=== PATIENT | male | born 1985 | race African-American/Black ===

== ENCOUNTER 2019-12-11 11:19 | Emergency (ER) | payer MEDICAID ==
[~2019-12-11] VITALS: Ht 185.4 cm; Wt 81.6 kg
--- NOTE | 2019-12-11 11:45 | NUR ---
Patient discharged to home in stable condition. Written and verbal after care instructions given. Patient verbalizes understanding of instructions. Stressed follow up or return to ER for worsening s/s.
== END 2019-12-11 11:52 | disposition home or self-care (01) ==
LOC: ER 11:19
DX: K64.9 Unspecified hemorrhoids (principal); J45.909 Unspecified asthma, uncomplicated
CPT/HCPCS: A4663

== ENCOUNTER 2020-04-02 13:32 | Emergency (ER) | payer MEDICAID ==
[~2020-04-02] VITALS: Ht 185.4 cm; Wt 83.9 kg
[2020-04-02] MEDS ORDERED: EMTR1TAB6 PO (13:49)
[2020-04-02] MEDS ORDERED: IBUP-1953 PO (13:49)
--- NOTE | 2020-04-02 14:19 | NUR ---
Dr Pineda at the bedside for MSE.
--- NOTE | 2020-04-02 14:51 | NUR ---
XRAY DONE AT BEDSIDE PER MD ORDER.
[2020-04-02 15:22] VITALS: BP 123/75
== END 2020-04-02 15:23 | disposition home or self-care (01) ==
LOC: ER 13:32
DX: M77.52 Other enthesopathy of left foot and ankle (principal); J45.909 Unspecified asthma, uncomplicated; Z79.899 Other long term (current) drug therapy; Z87.828 Personal history of other (healed) physical injury and trauma
CPT/HCPCS: 73610; 73630; A4663

== ENCOUNTER 2020-07-11 10:54 | Emergency (ER) | payer MEDICAID ==
[~2020-07-11] VITALS: Ht 185.4 cm; Wt 83.9 kg
[~2020-07-11 10:54] MED LIST: EMTR1TAB6 PO; IBUP-1953 PO
--- NOTE | 2020-07-11 11:22 | NUR ---
PATIENT WAITING TO BE SEEN. PATIENT IN TO COMPLAIN FOR PENILE DISCHARGE. STATES HE OFTEN GETS THAT DURING THE YEAR.
--- NOTE | 2020-07-11 11:30 | NUR ---
PATIENT SEEN BY DR CHRIS
--- NOTE | 2020-07-11 11:40 | NUR ---
URINE SENT TO LAB.
[2020-07-11 11:51] LABS: *BILIRUBIN,URIN NEGATIVE (NEGATIVE); *BLOOD, URINE NEGATIVE (NEGATIVE); *COLOR,URINE YELLOW (YELLOW); *KETONES,URINE NEGATIVE (NEGATIVE); *UROBILINOGEN,URINE 0.2 E.U./dl (NORMAL); LEUKOCYTE ESTERASE ,URINE NEGATIVE (NEGATIVE); NITRITE, URINE NEGATIVE (NEGATIVE); PH,URINE 6.5 (5.0-8.0); UGLUCOSE NEGATIVE (NEGATIVE)
[2020-07-11] MEDS ORDERED: CEPH500C2 PO (12:15)
--- NOTE | 2020-07-11 12:15 | NUR ---
PATIENT DISCHARGE PAPERWORK GIVEN, SIGNED, AND PRESCRIPTIONS ALSO GIVEN TO PATIENT.
[2020-07-11 15:15] LABS: *CLARITY,URINE CLEAR (CLEAR); RBC,URINE NONE SEEN /HPF (0-3)
[2020-07-11 15:16] LABS: BACTERIA,URINE NONE SEEN /HPF (NONE SEEN); SQUAMOUS EPITHELIAL CELL,UR NONE SEEN /HPF (NONE SEEN); WBC,URINE NONE SEEN /HPF (0-3)
[2020-07-13 08:06] LABS: *GC NAA Negative (Negative); *TRIC.VAG. NAA Negative (Negative)
== END 2020-07-11 12:23 | disposition home or self-care (01) ==
LOC: ER 10:54
DX: N48.1 Balanitis (principal); J45.909 Unspecified asthma, uncomplicated
CPT/HCPCS: 87491; A4663

== ENCOUNTER 2021-01-25 14:10 | Emergency (ER) | payer MEDICAID, OTHER ==
[~2021-01-25] VITALS: Ht 185.4 cm; Wt 83.9 kg
[~2021-01-25 14:10] MED LIST changes: +CEPH500C2 PO
[2021-01-25] MEDS ORDERED: PRED20TA PO (14:48)
[2021-01-25 14:54] VITALS: BP 142/84
--- NOTE | 2021-01-25 14:55 | NUR ---
PT WAS EVALUATED BY DR SERVIN. PT WAS D/C'd TO HOME. D/C INSTRUCTIONS GIVEN TO THE PT BY DR SERVIN.
== END 2021-01-25 14:56 | disposition home or self-care (01) ==
LOC: ER 14:10
DX: J06.9 Acute upper respiratory infection, unspecified (principal); Z20.822 Contact with and (suspected) exposure to COVID-19; J45.909 Unspecified asthma, uncomplicated
CPT/HCPCS: 87400; A4663

== ENCOUNTER 2021-02-03 14:57 | Emergency (ER) | payer OTHER ==
[~2021-02-03] VITALS: Ht 185.4 cm; Wt 83.9 kg
[~2021-02-03 14:57] MED LIST changes: +PRED20TA PO
[2021-02-03] MEDS ORDERED: AMOX-430 PO (15:42)
[2021-02-03] MEDS ORDERED: IBUP-1953 PO (15:52)
[2021-02-03 15:58] VITALS: BP 130/72
== END 2021-02-03 15:59 | disposition home or self-care (01) ==
LOC: ER 15:00
DX: S60.222A Contusion of left hand, initial encounter (principal); W54.0XXA Bitten by dog, initial encounter; Y92.89 Other specified places as the place of occurrence of the external cause; J45.909 Unspecified asthma, uncomplicated
CPT/HCPCS: A4663

== ENCOUNTER 2021-05-24 13:11 | Emergency (ER) | payer OTHER ==
[~2021-05-24] VITALS: Ht 185.4 cm; Wt 83.9 kg
[~2021-05-24 13:11] MED LIST changes: +AMOX-430 PO
[2021-05-24] MEDS ORDERED: CARB15DR63 EACH EAR (13:40)
== END 2021-05-24 13:54 | disposition home or self-care (01) ==
LOC: ER 13:11
DX: J06.9 Acute upper respiratory infection, unspecified (principal); Z20.822 Contact with and (suspected) exposure to COVID-19; H61.21 Impacted cerumen, right ear; J45.909 Unspecified asthma, uncomplicated
CPT/HCPCS: A4663

== ENCOUNTER 2021-06-03 22:18 | Emergency (ER) | payer SELFPAY ==
[~2021-06-03 22:18] MED LIST changes: +CARB15DR63 EACH EAR
== END 2021-06-03 23:15 | disposition left against medical advice (07) ==
LOC: ER 22:23
DX: Z53.21 Procedure and treatment not carried out due to patient leaving prior to being seen by health care provider (principal)

== ENCOUNTER 2022-02-21 09:50 | Emergency (ER) | payer OTHER ==
[~2022-02-21] VITALS: Ht 185.4 cm; Wt 83.9 kg
== END 2022-02-21 11:37 | disposition home or self-care (01) ==
LOC: ER 09:50
DX: M25.561 Pain in right knee (principal); J45.909 Unspecified asthma, uncomplicated; Z20.822 Contact with and (suspected) exposure to COVID-19
CPT/HCPCS: A4663

== ENCOUNTER 2022-06-18 20:09 | Emergency (ER) | payer OTHER ==
[~2022-06-18] VITALS: Ht 185.4 cm; Wt 83.0 kg
--- NOTE | 2022-06-18 20:19 | NUR ---
Dr. Burris evaluating patient at bedside. MSE in progress.
[2022-06-18 20:51] VITALS: BP 115/69
== END 2022-06-18 20:52 | disposition home or self-care (01) ==
LOC: ER 20:09
DX: M79.661 Pain in right lower leg (principal); J45.909 Unspecified asthma, uncomplicated; Z79.1 Long term (current) use of non-steroidal anti-inflammatories (NSAID); Z79.2 Long term (current) use of antibiotics; Z79.899 Other long term (current) drug therapy
CPT/HCPCS: A4663

== ENCOUNTER 2022-10-23 22:54 | Emergency (ER) | payer OTHER ==
[~2022-10-23] VITALS: Ht 185.4 cm; Wt 83.9 kg
[2022-10-23] MEDS ORDERED: LIDOCAINE VISCUS 2% 15 ML UDC MM ONE (23:15)
[2022-10-23] MEDS ORDERED: MAG HYDROX/AL HYDROX/SIMETH 30 ML LIQUID UDC PO ONE (23:15)
[2022-10-23] MEDS ORDERED: DICYCLOMINE HCL LIQ 10 MG/5 ML UDC PO ONE (23:15)
[2022-10-23 23:24] LABS: EOSINOPHILS % (AUTO) 1.1 % (0.0-7.0); HEMATOCRIT 44.6 % (36.7-47.1); HEMOGLOBIN 15.1 g/dL (12.5-16.3); LYMPHOCYTES # (AUTO) 0.9 K/uL (0.8-4.8); LYMPHOCYTES % (AUTO) 21.9 % (20.5-51.5); MEAN CORPUSCULAR HEMOGLOBIN 30.6 uug (23.8-33.4); MEAN CORPUSCULAR HGB CONC 34 g/dL (32.5-36.3); MEAN CORPUSCULAR VOLUME 90.2 fL (73.0-96.2); MONOCYTES # (AUTO) 0.5 K/uL (0.1-1.30); MONOCYTES % (AUTO) 11.7 % (0.0-11.0); NEUTROPHILS # (AUTO) 2.7 K/uL (1.8-8.9); NEUTROPHILS % (AUTO) 64.3 % (38.5-71.5); PLATELET COUNT (AUTO) 211 K/uL (152-348); RED BLOOD CELL COUNT(AUTO) 4.95 MIL/uL (4.06-5.63); RED CELL DISTRIBUTION WIDTH 13.4 % (12.1-16.2); WHITE BLOOD COUNT (AUTO) 4.2 K/uL (3.6-10.2)
[2022-10-23 23:29] LABS: DIFFERENTIAL COMMENT 1
[2022-10-23 23:38] LABS: CARBON DIOXIDE 30 mmol/L (21-32); CHLORIDE 102 mmol/L (98-107); CREATININE 1.1 mg/dL (0.6-1.3); GLUCOSE 93 mg/dL (74-106); POTASSIUM 3.7 mmol/L (3.5-5.1); SODIUM SERUM 139 mmol/L (136-145); UREA NITROGEN, BLOOD 16 mg/dL (7-18)
[2022-10-23 23:53] LABS: ALANINE AMINOTRANSFERASE 26 U/L (16-63); ALBUMIN 3.9 g/dL (3.4-5.0); ALKALINE PHOSPHATASE 133 U/L (50-136); ASPARTATE AMINOTRANSFERASE 21 U/L (15-37); BILIRUBIN,DIRECT 0.1 mg/dL (0.0-0.2); BILIRUBIN,TOTAL 0.3 mg/dL (0.2-1.0); TOTAL PROTEIN, SERUM 7.6 g/dL (6.4-8.2)
[2022-10-24] LABS: NT-PRO BNP 8 pg/mL (0-125)
[2022-10-24] MEDS ORDERED: DICYCLOMINE HCL LIQ 10 MG/5 ML UDC ONE (00:01)
[2022-10-24] MEDS ORDERED: MAG HYDROX/AL HYDROX/SIMETH 30 ML LIQUID UDC ONE (00:02)
[2022-10-24] MEDS ORDERED: LIDOCAINE 2% (GLYDO= UROJET) 10 ML JELLY MM ONE ×2 (00:08→00:15)
[2022-10-24] MEDS ORDERED: KETOROLAC TROMETHAMINE 30 MG INJ ONE (02:36)
[2022-10-24] MEDS ORDERED: KETOROLAC TROMETHAMINE 30 MG INJ IVP ONE (02:45)
[2022-10-24 03:03] VITALS: BP 112/71; TEMP 208.8; O2SAT 98
== END 2022-10-24 02:45 | disposition home or self-care (01) ==
LOC: ER 22:54
DX: R10.13 Epigastric pain (principal); R07.89 Other chest pain; J45.909 Unspecified asthma, uncomplicated; Z79.1 Long term (current) use of non-steroidal anti-inflammatories (NSAID); Z79.2 Long term (current) use of antibiotics; Z79.899 Other long term (current) drug therapy
CPT/HCPCS: 99285; 71045; 80076; 80048; 83880; 85025; 84484 ×2; 36415 ×2; 93005; 76705; 83690; J1885; A4663

== ENCOUNTER 2023-03-24 23:40 | Emergency (ER) | payer OTHER | END 2023-03-25 00:35 | disposition left against medical advice (07) | LOC: ER 23:46 | DX: Z53.21 Procedure and treatment not carried out due to patient leaving prior to being seen by health care provider (principal); J45.909 Unspecified asthma, uncomplicated; Z79.1 Long term (current) use of non-steroidal anti-inflammatories (NSAID); Z79.2 Long term (current) use of antibiotics; Z79.899 Other long term (current) drug therapy ==

== ENCOUNTER 2024-06-16 10:21 | Emergency (ER) | payer OTHER ==
[~2024-06-16] VITALS: Ht 185.4 cm; Wt 83.9 kg
[2024-06-16 13:06] VITALS: BP 107/68; O2SAT 99
== END 2024-06-16 13:07 | disposition home or self-care (01) ==
LOC: ER 10:23
DX: R10.11 Right upper quadrant pain (principal); J45.909 Unspecified asthma, uncomplicated; Z79.52 Long term (current) use of systemic steroids; Z79.624 Long term (current) use of inhibitors of nucleotide synthesis; Z87.19 Personal history of other diseases of the digestive system; Z60.2 Problems related to living alone
CPT/HCPCS: A4606; A4663